=== PATIENT | male | born 1980 | race Caucasian/White ===

== ENCOUNTER 2024-08-13 08:07 | Emergency (ER) | payer BC, SELFPAY ==
--- OUTSIDE RECORDS SUMMARY | 2024-08-13 08:09 | XMS_ITS | Clinical Summary ---
Author Organization [facility] Address [place], [place] [address] Care Team Providers Care Boat Person Name Role Phone Keely Frost MD [facility], Macrina Middleton MD Primary Care Provid er Allergies Active Allergy Reactions Criticality Noted Date Comments Hydralazine Itching 11/29/2015 Throat itched Lisinopril Angioedema 10/25/2015 Medications albuterol HFA (PRO-AIR; VENTOLIN; PROVENTIL) 90 mcg/actuation inhalerIndications :Cough Inhale 2 Puffs by mouth every 4 hours if needed (shortness of breath/wheezing). 1 Each 08/28/19 22 Active Blood Pressure Monitor KitIndications:HTN (hypertension) Check blood pressure daily as needed for hypertension. Duration: 99 months. Prognosis: Good. 1 Each 08/31/19 23 Active EPINEPHrine (EpiPen) 0.3 mg/0.3 mL auto-injectorIndic ations:Angioedema, initial encounter Inject 0.3 mg intramuscular one time if needed for Allergic Reaction. 2 Each 10/03/19 23 Active acetaminophen (TYLENOL) 325 mg tabletIndications: Symptomatic cholelithiasis Take 2 Tablets (650 mg) by mouth every 6 hours. Max acetaminophen dose: 4000mg in 24 hrs. 30 Tablet 3 3:42 PM PARTS CLASSIFIER 06/24/20 23 Active losartan (COZAAR) 100 mg tabletIndications: Hypertension, unspecified type Take 1 Tablet (100 mg) by mouth once daily. 90 Tablet 3 12/24/19 24 Active spironolactone (ALDACTONE) 100 mg tabletIndications: Hypertension, unspecified type Take 1 Tablet (100 mg) by mouth once daily in the morning. 90 Tablet 3 12/24/19 24 Active amLODIPine (NORVASC) 5 mg tabletIndications: Hypertension, unspecified type Take 1 Tablet (5 mg) by mouth once daily. 90 Tablet 3 07/12/19 25 Active Active Problems Problem Noted Date Diagnosed Date HTN (hypertension) Hyperlipidemia Resolved Problems Problem Noted Date Diagnosed Date Resolved Date Symptomatic cholelithiasis 06/24/2023 0 12/29/2023 Right arm cellulitis 03/14/2017 021 Right arm cellulitis 03/05/2017 021 Overview (03/15/2017): [facility] for IV Vanco Hyperlipidemia 08/29/2020 Encounters Date Type Department Care Team Description 07/12/2024 10:00 AM PARTS CLASSIFIER Office Visit [facility] [address] [facility] [address] [place] [address] Ilene Aguilera PA Abdominal Pain (Onset of abdominal pain x 1-2 weeks); Testicle Pain (Onset of coming and going testicle pain x 1-2- weeks) 07/12/2024 Travel 05/25/2024 Telephone [facility] [address] [place] [facility] [address] [place] [address] Macrina Abdullahi MD Hypertension from Last 3 Months Immunizations Name Administration Dates Next Due Tdap 07/16/2021,03/19/2017 Family History Medical History Relation Name Comments Hypertension Father Allergies Mother Hypertension Paternal Uncle 1 Hypertension Paternal Uncle 2 Heart Disease Paternal Uncle 3 Anuerysm r upture @ 57 Relation Name Status Comments Father Mother Paternal Uncle 1 Paternal Uncle 2 Paternal Uncle 3 Social History Tobacco Use Types Packs/Day Years Used Date Smoking Tobacco: Never Passive Smoke Exposure: Never Smokeless Tobacco: Never Tobacco Cessation:Counseling Given: No Alcohol Use Standard Drinks/Week Comments Not Currently 0 (1 standard drink = 0.6 oz pur e alcohol) Rare PHQ-2 Answer Date Recorded PHQ-2 TOTAL SCORE 0 12/24/2023 Social Connections Answer Date Recorded Frequency of Communication with Friends and Fami ly 0 10/02/2022 Financial Resource Strain Answer Date R ecorded Difficulty of Paying Living Expenses 3 10/02/2022 Difficulty of Paying Living Expenses Not on file 10/02/2022 Food Insecurity Answer Date Recorded Worried About Running Out of Food in the Last Ye ar 1 10/02/2022 Transportation Needs Answer Date Record ed Lack of Transportation (Medical) 1 10/02/2022 Housing Stability Answer Date Recorded Unable to Pay for Housing in the Last Year 1 10/02/2022 Interpersonal Safety Answer Date Record ed Are you being hit, kicked, p ushed or yelled at (see row info)? No 08/28/2023 Interpersonal Safety Abuse 12 - 18 Not on file 08/28/2023 Interpersonal Safety Ambulatory Vulnerability No t on file 08/28/2023 Sex and Gender Information Value Date Recorded Sex Assigned at Not on file Legal Sex Male 7:46 AM CDT Gender Identity Not on file Sexual Orientation Not on file Obstetrics History Para Term AB IAB SAB Ectopic Multiple Livin g Live Births 0 0 0 0 0 0 0 0 Last Filed Vital Signs Vital Sign Reading Time Taken Comments Blood Pressure 150/100 07/12/2024 10:09 AM PARTS CLASSIFIER Pulse 79 07/12/2024 10:06 AM PARTS CLASSIFIER Temperature 37.1 C (98.7 F) 08/28/2023 3:31 PM PARTS CLASSIFIER Respiratory Rate 16 08/28/2023 3:31 PM PARTS CLASSIFIER Oxygen Saturation 99% 07/12/2024 10: 06 AM PARTS CLASSIFIER Inhaled Oxygen Concentration - - Weight 120.8 kg (266 lb 4.8 oz) 025 10:06 AM PARTS CLASSIFIER Height 182.9 cm (6' 0.01) 07/12/2024 1 0:06 AM PARTS CLASSIFIER Body Mass Index 36.11 07/12/2024 10:06 AM PARTS CLASSIFIER Plan of Treatment Health Maintenance Due Date Last Done Comments COVID-19 vaccine series ( season) 2024 Influenza for age 9-49 03/05/2024 Colonoscopy through age 75 2024 Depression screening for age 12+ 12/23/2024 12/24/2023, 12/16/2021, 08/29/2020, Additional history exists BMI (ht and wt on same day) for age 18+ 07/12/2025 07/12/2024, 12/24/2023, 06/23/2023, Additional history exists Lipids for age 45-75 12/23/2028 12/24/2023, 08/29/2020, 04/06/2018, Additional history exists Tetanus booster 07/16/2031 07/16/2021, 03/19/2017 HIV for age 15-65 Completed 06/20/2021, 06/20/2021 Hepatitis C screening for age 18-79 Completed 06/20/2021 Tdap Completed 07/16/2021, 03/19/2017 Pneumococcal series for age 6-49 Aged Out No longer eligible based on patient's age to complete this topic Goals Goal Patient Goal Type Associated Problems Recent Progress Patient-Stated? Author BLOOD PRESSURE - Maintains BP less than 140/90 Blood Pressure No Bradly, Macrina Middleton MD Procedures Procedure Name Priority Date/Time Associated Diagnosis Comments CBC WITH AUTO DIFFERENTIAL Routine 07/12/2024 10:36 AM PARTS CLASSIFIER Abdominal pain, RUQ (right upper quadrant) COMP METABOLIC PANEL Routine 07/12/2024 10:36 AM PARTS CLASSIFIER Abdominal pain, RUQ (right upper quadrant) URINALYSIS MACROSCOPIC - [facility] ONLY POC DIP ([facility]) Routine 07/12/2024 10:35 AM PARTS CLASSIFIER Abdominal pain, RUQ (right upper quadrant) Dysuria URINE CULTURE Routine 07/12/2024 10:34 AM PARTS CLASSIFIER Abdominal pain, RUQ (right upper quadrant) Dysuria URINALYSIS MICROSCOPIC Routine 07/12/2024 10:34 AM PARTS CLASSIFIER Dysuria GC CHLAMYDIA TRACH PROBE Routine 07/12/2024 10:34 AM PARTS CLASSIFIER Testicular pain, left Testicular pain, right Dysuria TRICHOMONAS AMPLIFIED PROBE Routine 07/12/2024 10:34 AM PARTS CLASSIFIER Abdominal pain, RUQ (right upper quadrant) Testicular pain, left Testicular pain, right Dysuria LIPID PANEL Routine 12/24/2023 10:38 AM CDT HTN (hypertension) Hyperlipidemia, unspecified hyperlipidemia type ANTI HIV 1/2 Routine 06/20/2021 10:14 AM PARTS CLASSIFIER Venereal disease screening ANTI HCV Routine 06/20/2021 10:14 AM PARTS CLASSIFIER Venereal disease screening from Last 3 Months or Most Recently Relevant to Health Maintenance Results * CBC AND DIFFERENTIAL (07/12/2024 10:36 AM PARTS CLASSIFIER) WHITE BLOOD CELL COUNT 5.2 3.8 - 10.8 Thousand/u L [facility] RED BLOOD CELL COUNT 5.51 4.20 - 5.80 Million/uL [facility] HEMOGLOBIN 16.4 13.2 - 17.1 g/dL [facility] HEMATOCRIT 48.5 38.5 - 50.0 % [facility] MCV 88.0 80.0 - 100.0 fL [facility] MCH 29.8 27.0 - 33.0 pg [facility] MCHC 33.8 32.0 - 36.0 g/dL [facility] Comment: For adults, a slight decrease in the calculated MCHC value (in the range of 30 to 32 g/dL) is most likely not clinically significant; however, it should be interpreted with caution in correlation with other red cell parameters and the patient's clinical condition. RDW 13.0 11.0 - 15.0 % [facility] PLATELET COUNT 232 140 - 400 Thousand/u L [facility] MPV 10.5 7.5 - 12.5 fL [facility] ABSOLUTE NEUTROPHILS 3,240 1,500 - 7,800 cells/uL [facility] ABSOLUTE LYMPHOCYTES 1,258 850 - 3,900 cells/uL [facility] ABSOLUTE MONOCYTES 478 200 - 950 cells/uL [facility] ABSOLUTE EOSINOPHILS 172 15 - 500 cells/uL [facility] ABSOLUTE BASOPHILS 52 0 - 200 cells/uL [facility] NEUTROPHILS 62.3 % [facility] LYMPHOCYTES 24.2 % [facility] MONOCYTES 9.2 % [facility] EOSINOPHILS 3.3 % [facility] BASOPHILS 1.0 % [facility] Blood BLOOD SPECIMEN / Unknown 07/12/2024 10:36 AM PARTS CLASSIFIER 07/12/2024 10:36 AM PARTS CLASSIFIER Ilene WILLAMS HEMATOLOGY Jayla l Result [address] [facility] [address] [place] [address], [facility] [address] [place] [address] * COMP METABOLIC PANEL (07/12/2024 10:36 AM PARTS CLASSIFIER) GLUCOSE 92 65 - 99 mg/dL [facility] Comment: Fasting reference interval UREA NITROGEN (BUN) 16 7 - 25 mg/dL [facility] CREATININE 0.95 0.60 - 1.29 mg/dL [facility] EGFR 101 > OR = 60 mL/min/1. 73m2 [facility] BUN/CREATININE RATIO SEE NOTE: 6 - 22 (calc) [facility] Comment: Not Reported: BUN and Creatinine are within reference range. SODIUM 140 135 - 146 mmol/L [facility] POTASSIUM 3.8 3.5 - 5.3 mmol/L [facility] CHLORIDE 103 98 - 110 mmol/L [facility] CARBON DIOXIDE 28 20 - 32 mmol/L [facility] CALCIUM 9.5 8.6 - 10.3 mg/dL [facility] PROTEIN, TOTAL 7.1 6.1 - 8.1 g/dL [facility] ALBUMIN 4.7 3.6 - 5.1 g/dL [facility] GLOBULIN 2.4 1.9 - 3.7 g/dL (calc) [facility] ALBUMIN/GLOBULIN RATIO 2.0 1.0 - 2.5 (calc) [facility] BILIRUBIN, TOTAL 0.9 0.2 - 1.2 mg/dL [facility] ALKALINE PHOSPHATASE 98 36 - 130 U/L [facility] AST 23 10 - 40 U/L [facility] ALT 33 9 - 46 U/L [facility] Blood BLOOD SPECIMEN / Unknown 07/12/2024 10:36 AM PARTS CLASSIFIER 07/12/2024 10:36 AM PARTS CLASSIFIER Ilene WILLAMS CHEMISTRY Jayla l Result Performing Organization Address City/[facility] [address]/ZIP Co de Phone Number [address] [facility] [address] [place] [address], [facility] [address] [place] [address] * POCT Urinalysis Dipstick Only (07/12/2024 10:35 AM PARTS CLASSIFIER) [facility] PH 5.5 5.0 - 8.0 [facility] SPECIFIC GRAVITY 1.020 1.001 - 1.035 [facility] GLUCOSE NEGATIVE NEGATIVE [facility] BILIRUBIN NEGATIVE NEGATIVE [facility] KETONES NEGATIVE NEGATIVE [facility] OCCULT BLOOD NEGATIVE NEGATIVE [facility] PROTEIN NEGATIVE NEGATIVE [facility] NITRITE NEGATIVE NEGATIVE [facility] LEUKOCYTE ESTERASE NEGATIVE NEGATIVE [facility] Urine URINE SPECIMEN / Unknown 07/12/2024 10:35 AM PARTS CLASSIFIER 07/12/2024 10:35 AM PARTS CLASSIFIER Ilene WILLAMS URINE Jayla l Result [facility] [address] [facility] [address] [address] [place] [address], [place] [phone] [facility] [address] [place] [facility] [place] [address] * TRICHOMONAS AMPLIFIED PROBE (07/12/2024 10:34 AM PARTS CLASSIFIER) TRICHOMONAS AMPLIFIED PROBE Negative 07/14/2024 11:09 AM PARTS CLASSIFIER [facility] Other URINE SPECIMEN / Unknown Non-Blood / Unknown 07/12/2024 10:34 AM PARTS CLASSIFIER 07/12/2024 10:34 AM PARTS CLASSIFIER Ilene WILLAMS MICROBIOLOGY Jayla l Result Performing Organization Address City/[facility] [address]/ZIP Co de Phone Number [facility] [address] [place] [id number], [place] * URINALYSIS MICROSCOPIC (07/12/2024 10:34 AM PARTS CLASSIFIER) RBC 0-2 0-2, None Seen /HPF 07/13/2024 1:00 AM PARTS CLASSIFIER [facility] WBC 0-2 0-2, 3-5, None Seen /HPF 07/13/2024 1:00 AM PARTS CLASSIFIER [facility] BACTERIA None Seen None Seen, Rare, Few Bacteria/ HPF 07/13/2024 1:00 AM PARTS CLASSIFIER [facility] EPITHELIAL CELLS None Seen None Seen, Few Epi/HPF 07/13/2024 1:00 AM PARTS CLASSIFIER [facility] HYALINE CASTS 3-5 0-2, 3-5 /LPF 07/13/2024 1:00 AM PARTS CLASSIFIER [facility] Urine URINE SPECIMEN / Unknown Non-Blood / Unknown 07/12/2024 10:34 AM PARTS CLASSIFIER 07/12/2024 10:34 AM PARTS CLASSIFIER Ilene WILLAMS URINE Jayla l Result [facility] [address] [place] [address], [place] * GC CHLAMYDIA [[id number]] - urine (07/12/2024 10:34 AM PARTS CLASSIFIER) CHLAMYDIA PROBE Negative 12:57 PM PARTS CLASSIFIER [facility] N GONORRHOEAE PROBE Negative 07/13/2024 12:57 PM PARTS CLASSIFIER [facility] Other URINE SPECIMEN / Unknown Non-Blood / Unknown 07/12/2024 10:34 AM PARTS CLASSIFIER 07/12/2024 10:34 AM PARTS CLASSIFIER Ilene WILLAMS MICROBIOLOGY Jayla l Result [facility] [address] [place] [address], * URINE CULTURE (07/12/2024 10:34 AM PARTS CLASSIFIER) CULTURE No growth (<1,000 CFU/mL) 07/14/2024 7:[address] [facility] Urine URINE SPECIMEN / Unknown Non-Blood / Unknown 07/12/2024 10:34 AM PARTS CLASSIFIER 07/12/2024 10:34 AM PARTS CLASSIFIER Ilene WILLAMS MICROBIOLOGY Jayla l Result [facility] [address] [place] [address], * (ABNORMAL) LIPID PANEL (12/24/2023 10:38 AM CDT) CHOLESTEROL,TOTAL 227(H) 100 - 199 mg/dL 12/24/2023 1:39 PM CDT [facility] Comment: Cholesterol, Total Reference Ranges Desirable <200 mg/dL Borderline 200-239 mg/dL High >=240 mg/dL TRIGLYCERIDES 154(H) <150 mg/dL 12/24/2023 1:39 PM CDT [facility] HDL CHOLESTEROL 44 >40 mg/dL 1:39 PM CDT [facility] NON-HDL CHOLESTEROL 183(H) <145 mg/dl 12/24/2023 1:39 PM CDT [facility] CHOL/HDL RATIO 5.16(H) <4.50 12/24/2023 1:39 PM CDT [facility] LDL CHOLESTEROL 152(H) <=130 mg/dL 12/24/2023 1:39 PM CDT [facility] VLDL CHOLESTEROL 31(H) <=30 mg/dL 12/24/2023 1:39 PM CDT [facility] PROVIDER ORDERED STATUS RANDOM 12/24/2023 1:39 PM CDT [facility] Blood BLOOD SPECIMEN / Unknown Venipuncture / Unknown 12/24/2023 10:38 AM CDT 12/24/2023 10:38 AM CDT Macrina Abdullahi MD CHEMISTRY Jayla l Result [facility] [address] [place] [address], [place] * ANTI HCV (06/20/2021 10:14 AM PARTS CLASSIFIER) Pathologist [facility] HEPATITIS C ANTIBODY Non-React sommer Non-React sommer 06/20/2021 3:30 PM PARTS CLASSIFIER [facility] Comment:Antibodies to HCV no t detected; does not exclude the possibility of exposure to HCV. Blood BLOOD SPECIMEN / Unknown Venipuncture / Unknown 06/20/2021 10:14 AM PARTS CLASSIFIER 06/20/2021 10:14 AM PARTS CLASSIFIER Macrina Abdullahi MD SEND OUTS Jayla l Result [facility] [address] [place] [address], [place] * ANTI HIV 1/2 (06/20/2021 10:14 AM PARTS CLASSIFIER) Pathologist [facility] HIV-1/HIV-2 ANTIBODY Non-Reacti ve Non-Reacti ve 06/20/2021 3:27 PM PARTS CLASSIFIER [facility] Comment:HIV-1 p24 and HIV-1/ HIV-2 Ab not detected. Blood BLOOD SPECIMEN / Unknown Venipuncture / Unknown 06/20/2021 10:14 AM PARTS CLASSIFIER 06/20/2021 10:14 AM PARTS CLASSIFIER us Macrina Abdullahi MD SEND OUTS Jayla l Result [facility] [address] [place] [address], [place] from Last 3 Months or Most Recently Relevant to Health Maintenance Insurance [facility] Advance Directives * Full Code (Latest Code Status on File) Date Activated Date Inactivated Comments 06/24/2023 12:16 PM 06/24/2023 6:56 PM Question Answer Comments Code Status Discussion: Unable to Assess Preferences, Provider to review later * Full Code Date Activated Date Inactivated Comments 03/15/2017 2:52 AM 03/15/2017 4:44 PM Care Teams Boat Person Relationship Specialty Start Date End Date Macrina Abdullahi MD [address] [address] [place] [address] PCP - General Family Practice 04/24/19 Keely Frost MD Family Practice 10/25/15
[2024-08-13 08:16] VITALS: BP 172/114; PULSE 69; RESP 20; TEMP 36.4; O2SAT 98; BMI 35.5
--- NOTE | 2024-08-13 08:17 | ED_ITS ---
HPI - Extremity Injury (Lower) General Chief Complaint: Extremity Pain/Injury, Lower Stated Complaint: left baby toe injury Time Seen by Provider: 08/13/24 08:10 History of Present Illness HPI Narrative: Patient is a 44-year-old gentleman who stumbled this morning on his child's toy a digits number 4 in 5 on his left foot. He suffered a skin tear between the 2 digits. He does not believe he has a broken toe. Ng bear weight without any difficulty. This skin tear is approximately 2 cm in length. Patient states he is extremely averse to needles. He preferred not to have any sutures. No signs of infection pain is only minimal. Related Data Allergies Allergy/AdvReac Type Severity Reaction Status Date / Time lisinopril Allergy Verified 08/13/24 08:16 Review of Systems Status of ROS: Reports: 10 or more systems reviewed and unremarkable except as noted in History and below Exam Narrative: Exam Narrative: EXAM GENERAL: Patient appears comfortable and well. EYES: No scleral icterus. LYMPH: No supraclavicular or cervical lymphadenopathy. SKIN: Small skin tear between digits 4 and 5 on the left foot. With good wound approximation. EXT: No dependent lower extremity pedal edema. PSYCH: Good eye contact, speech is not pressured. Course Course ED Course: Patient seen and examined. MDM - Extremity Injury (Lower) MDM Narrative Medical decision making narrative: Patient is a 44-year-old gentleman comes in today with skin tear between digits 4 and 5 on his left foot. I did clean and soak the wound. Patient does not want sutures I do think it will heal fine without. I did recommend immobilization of that area as much as possible topical antibiotics and follow- up with his primary physician as needed. Discharge Plan Discharge Clinical Impression: Skin tear Patient Disposition: Home, Self-Care Condition: Stable Instructions: Laceration (ED) Additional Instructions: Keep wound clean Try to minimize disruption of healing Follow-up as needed. Topical antibiotics daily. Activity Level: No Restrictions Discharge Diet: Regular Stand Alone Forms: [employer] Info Instructions
--- OUTSIDE RECORDS SUMMARY | 2024-08-13 08:37 | XMS_ITS | Clinical Summary ---
Author Organization [facility] Address [place], [place] [address] Care Team Providers Care Manager Pmo Name Role Phone Keely Frost MD [facility], Macrina Middleton MD Primary Care Provid [...] 24 hrs. 30 Tablet 3 3:42 PM BUS ASSISTANT 06/24/20 23 Active losartan (COZAAR) 100 mg [...] Department Care Team Description 07/12/2024 10:00 AM BUS ASSISTANT Office Visit [facility] [address] [facility] [address] [place] [address] Ilene Aguilera PA Abdominal Pain (Onset of abdominal pain x 1-2 weeks); Testicle Pain (Onset of coming and going testicle pain x 1-2- weeks) 07/12/2024 Travel 05/25/2024 Telephone [facility] [address] [facility] [address] [place] [address] Macrina Abdullahi MD Hypertension from Last 3 [...] Comments Blood Pressure 150/100 07/12/2024 10:09 AM BUS ASSISTANT Pulse 79 07/12/2024 10:06 AM BUS ASSISTANT Temperature 37.1 C (98.7 F) 08/28/2023 3:31 PM BUS ASSISTANT Respiratory Rate 16 08/28/2023 3:31 PM BUS ASSISTANT Oxygen Saturation 99% 07/12/2024 10: 06 AM BUS ASSISTANT Inhaled Oxygen Concentration - - Weight 120.8 kg (266 lb 4.8 oz) 025 10:06 AM BUS ASSISTANT Height 182.9 cm (6' 0.01) 07/12/2024 1 0:06 AM BUS ASSISTANT Body Mass Index 36.11 07/12/2024 10:06 AM BUS ASSISTANT Plan of Treatment Health Maintenance Due Date [...] WITH AUTO DIFFERENTIAL Routine 07/12/2024 10:36 AM BUS ASSISTANT Abdominal pain, RUQ (right upper quadrant) COMP METABOLIC PANEL Routine 07/12/2024 10:36 AM BUS ASSISTANT Abdominal pain, RUQ (right upper quadrant) URINALYSIS MACROSCOPIC - [facility] ONLY POC DIP ([facility]) Routine 07/12/2024 10:35 AM BUS ASSISTANT Abdominal pain, RUQ (right upper quadrant) Dysuria URINE CULTURE Routine 07/12/2024 10:34 AM BUS ASSISTANT Abdominal pain, RUQ (right upper quadrant) Dysuria URINALYSIS MICROSCOPIC Routine 07/12/2024 10:34 AM BUS ASSISTANT Dysuria GC CHLAMYDIA TRACH PROBE Routine 07/12/2024 10:34 AM BUS ASSISTANT Testicular pain, left Testicular pain, right Dysuria TRICHOMONAS AMPLIFIED PROBE Routine 07/12/2024 10:34 AM BUS ASSISTANT Abdominal pain, RUQ (right upper quadrant) Testicular pain, left Testicular pain, right Dysuria LIPID PANEL Routine 12/24/2023 10:38 AM CDT HTN (hypertension) Hyperlipidemia, unspecified hyperlipidemia type ANTI HIV 1/2 Routine 06/20/2021 10:14 AM BUS ASSISTANT Venereal disease screening ANTI HCV Routine 06/20/2021 10:14 AM BUS ASSISTANT Venereal disease screening from Last 3 Months or Most Recently Relevant to Health Maintenance Results * CBC AND DIFFERENTIAL (07/12/2024 10:36 AM BUS ASSISTANT) WHITE BLOOD CELL COUNT 5.2 3.8 - [...] BLOOD SPECIMEN / Unknown 07/12/2024 10:36 AM BUS ASSISTANT 07/12/2024 10:36 AM BUS ASSISTANT Ilene WILLAMS HEMATOLOGY Jayla l Result [employer] [facility] [address] [place] [address], [employer] [address] [place] [address] * COMP METABOLIC PANEL (07/12/2024 10:36 AM BUS ASSISTANT) GLUCOSE 92 65 - 99 mg/dL [facility] [...] BLOOD SPECIMEN / Unknown 07/12/2024 10:36 AM BUS ASSISTANT 07/12/2024 10:36 AM BUS ASSISTANT Ilene WILLAMS CHEMISTRY Jayla l Result Performing Organization Address City/[facility]/ZIP Co de Phone Number [employer] [facility] [address] [place] [address], [facility] [address] [place] [address] * POCT Urinalysis Dipstick Only (07/12/2024 10:35 AM BUS ASSISTANT) [facility] PH 5.5 5.0 - 8.0 [facility] SPECIFIC GRAVITY 1.020 1.001 - 1.035 [facility] GLUCOSE NEGATIVE NEGATIVE [facility] BILIRUBIN NEGATIVE NEGATIVE [facility] KETONES NEGATIVE NEGATIVE [facility] OCCULT BLOOD NEGATIVE NEGATIVE [facility] PROTEIN NEGATIVE NEGATIVE [facility] NITRITE NEGATIVE NEGATIVE [facility] LEUKOCYTE ESTERASE NEGATIVE NEGATIVE [facility] Urine URINE SPECIMEN / Unknown 07/12/2024 10:35 AM BUS ASSISTANT 07/12/2024 10:35 AM BUS ASSISTANT Ilene WILLAMS URINE Jayla l Result [facility] [address] [facility] [address] [place] [address], [place] [phone] [facility] [address] [facility] [place] [address] * TRICHOMONAS AMPLIFIED PROBE (07/12/2024 10:34 AM BUS ASSISTANT) TRICHOMONAS AMPLIFIED PROBE Negative 07/14/2024 11:09 AM BUS ASSISTANT [facility] Other URINE SPECIMEN / Unknown Non-Blood / Unknown 07/12/2024 10:34 AM BUS ASSISTANT 07/12/2024 10:34 AM BUS ASSISTANT Ilene WILLAMS MICROBIOLOGY Jayla l Result Performing Organization Address City/[facility]/ZIP Co de Phone Number [facility] [address] [place] [id number], [place] * URINALYSIS MICROSCOPIC (07/12/2024 10:34 AM BUS ASSISTANT) RBC 0-2 0-2, None Seen /HPF 07/13/2024 1:00 AM BUS ASSISTANT [facility] WBC 0-2 0-2, 3-5, None Seen /HPF 07/13/2024 1:00 AM BUS ASSISTANT [facility] BACTERIA None Seen None Seen, Rare, Few Bacteria/ HPF 07/13/2024 1:00 AM BUS ASSISTANT [facility] EPITHELIAL CELLS None Seen None Seen, Few Epi/HPF 07/13/2024 1:00 AM BUS ASSISTANT [facility] HYALINE CASTS 3-5 0-2, 3-5 /LPF 07/13/2024 1:00 AM BUS ASSISTANT [facility] Urine URINE SPECIMEN / Unknown Non-Blood / Unknown 07/12/2024 10:34 AM BUS ASSISTANT 07/12/2024 10:34 AM BUS ASSISTANT Ilene WILLAMS URINE Jayla l Result [facility] [address] [place] [address], [place] * GC CHLAMYDIA [[id number]] - urine (07/12/2024 10:34 AM BUS ASSISTANT) CHLAMYDIA PROBE Negative 12:57 PM BUS ASSISTANT [facility] N GONORRHOEAE PROBE Negative 07/13/2024 12:57 PM BUS ASSISTANT [facility] Other URINE SPECIMEN / Unknown Non-Blood / Unknown 07/12/2024 10:34 AM BUS ASSISTANT 07/12/2024 10:34 AM BUS ASSISTANT Ilene WILLAMS MICROBIOLOGY Jayla l Result [facility] [address] [place] [address], * URINE CULTURE (07/12/2024 10:34 AM BUS ASSISTANT) CULTURE No growth (<1,000 CFU/mL) 07/14/2024 7:31 AM BUS ASSISTANT [facility] Urine URINE SPECIMEN / Unknown Non-Blood / Unknown 07/12/2024 10:34 AM BUS ASSISTANT 07/12/2024 10:34 AM BUS ASSISTANT Ilene WILLAMS MICROBIOLOGY Jayla l Result [facility] [address] [place] [address], * (ABNORMAL) LIPID PANEL (12/24/2023 10:38 AM CDT) CHOLESTEROL,TOTAL 227(H) 100 - 199 mg/dL 12/24/2023 1:39 PM CDT [facility] Comment: Cholesterol, Total Reference Ranges Desirable <200 mg/dL Borderline 200-239 mg/dL High >=240 mg/dL TRIGLYCERIDES 154(H) <150 mg/dL 12/24/2023 1:39 PM CDT [facility] HDL CHOLESTEROL 44 >40 mg/dL 1:39 PM CDT [facility] NON-HDL CHOLESTEROL 183(H) <145 mg/dl 12/24/2023 1:39 PM CDT [facility] CHOL/HDL RATIO 5.16(H) <4.50 12/24/2023 1:39 PM CDT [facility] LDL CHOLESTEROL 152(H) <=130 mg/dL 12/24/2023 1:39 PM CDT [facility] VLDL CHOLESTEROL 31(H) <=30 mg/dL 12/24/2023 1:39 PM CDT [facility] PROVIDER ORDERED STATUS RANDOM 12/24/2023 1:39 PM CDT [facility] Blood BLOOD SPECIMEN / Unknown Venipuncture / Unknown 12/24/2023 10:38 AM CDT 12/24/2023 10:38 AM CDT Macrina Abdullahi MD CHEMISTRY Jayla l Result [facility] [address] [place] [address], [place] * ANTI HCV (06/20/2021 10:14 AM BUS ASSISTANT) Pathologist [facility] [place] HEPATITIS C ANTIBODY Non-React sommer Non-React sommer 06/20/2021 3:30 PM BUS ASSISTANT [facility] Comment:Antibodies to HCV no t detected; does not exclude the possibility of exposure to HCV. Blood BLOOD SPECIMEN / Unknown Venipuncture / Unknown 06/20/2021 10:14 AM BUS ASSISTANT 06/20/2021 10:14 AM BUS ASSISTANT Macrina Abdullahi MD SEND OUTS Jayla l Result [facility] [address] [place] [address], [place] * ANTI HIV 1/2 (06/20/2021 10:14 AM BUS ASSISTANT) Pathologist [facility] [place] HIV-1/HIV-2 ANTIBODY Non-Reacti ve Non-Reacti ve 06/20/2021 3:27 PM BUS ASSISTANT [facility] Comment:HIV-1 p24 and HIV-1/ HIV-2 Ab not detected. Blood BLOOD SPECIMEN / Unknown Venipuncture / Unknown 06/20/2021 10:14 AM BUS ASSISTANT 06/20/2021 10:14 AM BUS ASSISTANT us Macrina Abdullahi MD SEND OUTS Jayla l Result [facility] [address] [place] [address], [place] from Last 3 Months or Most Recently Relevant to Health Maintenance Insurance [facility] Advance Directives * Full Code (Latest Code Status on File) Date Activated Date Inactivated Comments 06/24/2023 12:16 PM 06/24/2023 6:56 PM Question Answer Comments Code Status Discussion: Unable to Assess Preferences, Provider to review later * Full Code Date Activated Date Inactivated Comments 03/15/2017 2:52 AM 03/15/2017 4:44 PM Care Teams Manager Pmo Relationship Specialty Start Date End Date Macrina Abdullahi MD [address] [place] [address] [place] [address] PCP - General Family Practice 04/24/19 Keely Frost MD Family Practice 10/25/15
== END 2024-08-13 08:43 | disposition home or self-care (01) ==
LOC: ED 08:35
PROVIDERS: Emergency Provider Internal Medicine
DX: S91.115A Laceration without foreign body of left lesser toe(s) without damage to nail, initial encounter (principal); W22.8XXA Striking against or struck by other objects, initial encounter
CPT/HCPCS: 99283

== ENCOUNTER 2024-10-19 15:08 | Emergency (ER) | payer BC, SELFPAY ==
[2024-10-19] VITALS (41 sets, daily range): BP systolic 136–160; BP diastolic 82–102; PULSE 78–97; RESP 16; TEMP 36–37.1; O2SAT 93–97; BMI 35.3
--- OUTSIDE RECORDS SUMMARY | 2024-10-19 15:11 | XMS_ITS | Clinical Summary ---
Author Organization [facility] Address [address] [place] [address] Care Team Providers Care Medical Administrative Name Role Phone Keely Frost MD [facility] guallpa BradlyMacrina chavez MD Primary Care Provid er Allergies Active [...] 24 hrs. 30 Tablet 3 3:42 PM TELEVISION ANALYZER 06/24/20 23 Active losartan (COZAAR) 100 mg [...] [facility] for IV Vanco Hyperlipidemia 08/29/2020 Immunizations Immunization Administration Dates Next Due Tdap 07/16/2021,03/19/2017 Family [...] Comments Blood Pressure 150/100 07/12/2024 10:09 AM TELEVISION ANALYZER Pulse 79 07/12/2024 10:06 AM TELEVISION ANALYZER Temperature 37.1 C (98.7 F) 08/28/2023 3:31 PM TELEVISION ANALYZER Respiratory Rate 16 08/28/2023 3:31 PM TELEVISION ANALYZER Oxygen Saturation 99% 07/12/2024 10: 06 AM TELEVISION ANALYZER Inhaled Oxygen Concentration - - Weight 120.8 kg (266 lb 4.8 oz) 025 10:06 AM TELEVISION ANALYZER Height 182.9 cm (6' 0.01) 07/12/2024 1 0:06 AM TELEVISION ANALYZER Body Mass Index 36.11 07/12/2024 10:06 AM TELEVISION ANALYZER Plan of Treatment Health Maintenance Due Date Last Done Comments COVID-19 vaccine series (2023- season) 2024 Colonoscopy through age 75 2024 Depression screening for age 12+ 12/23/2024 12/24/2023, 12/16/2021, 08/29/2020, Additional history exists Influenza Vaccine (Season Ended) 2025 BMI (ht and wt on same day) [...] than 140/90 Blood Pressure No Bradly, Macrina Catina Middleton MD Procedures Procedure Name Priority Date/Time Associated Diagnosis Comments LIPID PANEL Routine 12/24/2023 10:38 AM CDT HTN (hypertension) Hyperlipidemia, unspecified hyperlipidemia type ANTI HIV 1/2 Routine 06/20/2021 10:14 AM TELEVISION ANALYZER Venereal disease screening ANTI HCV Routine 06/20/2021 10:14 AM TELEVISION ANALYZER Venereal disease screening from Last 3 Months or Most Recently Relevant to Health Maintenance Results * (ABNORMAL) LIPID PANEL (12/24/2023 10:38 AM CDT) Pathologist [facility] CHOLESTEROL,TOTAL 227(H) 100 - 199 mg/dL 12/24/2023 1:39 PM CDT [facility] Comment: Cholesterol, Total Reference Ranges Desirable <200 mg/dL Borderline 200-239 mg/dL High >=240 mg/dL TRIGLYCERIDES 154(H) <150 mg/dL 12/24/2023 1:39 PM CDT [facility] HDL CHOLESTEROL 44 >40 mg/dL 1:39 PM CDT [facility] NON-HDL CHOLESTEROL 183(H) <145 mg/dl 12/24/2023 1:39 PM CDT [facility] CHOL/HDL RATIO 5.16(H) <4.50 12/24/2023 1:39 PM CDT [facility] LDL CHOLESTEROL 152(H) <=130 mg/dL 12/24/2023 1:39 PM CDT [facility] VLDL CHOLESTEROL 31(H) <=30 mg/dL 12/24/2023 1:39 PM CDT [facility] PROVIDER ORDERED STATUS RANDOM 12/24/2023 1:39 PM CDT [facility] Blood BLOOD SPECIMEN / Unknown Venipuncture / Unknown 12/24/2023 10:38 AM CDT 12/24/2023 10:38 AM CDT Macrina Abdullahi MD CHEMISTRY Jayla l Result [facility] [address] [place] [address], * ANTI HCV (06/20/2021 10:14 AM TELEVISION ANALYZER) HEPATITIS C ANTIBODY Non-React sommer Non-React sommer 06/20/2021 3:30 PM TELEVISION ANALYZER [facility] Comment:Antibodies to HCV no t detected; does not exclude the possibility of exposure to HCV. Blood BLOOD SPECIMEN / Unknown Venipuncture / Unknown 06/20/2021 10:14 AM TELEVISION ANALYZER 06/20/2021 10:14 AM TELEVISION ANALYZER Macrina Abdullahi MD SEND OUTS Jayla l Result Performing Organization Address City/[facility] Co de Phone Number [facility] [address] [place] [address], * ANTI HIV 1/2 (06/20/2021 10:14 AM TELEVISION ANALYZER) HIV-1/HIV-2 ANTIBODY Non-Reacti ve Non-Reacti ve 06/20/2021 3:27 PM TELEVISION ANALYZER [facility] Comment:HIV-1 p24 and HIV-1/ HIV-2 Ab not detected. Blood BLOOD SPECIMEN / Unknown Venipuncture / Unknown 06/20/2021 10:14 AM TELEVISION ANALYZER 06/20/2021 10:14 AM TELEVISION ANALYZER Macrina Abdullahi MD SEND OUTS Jayla l Result [facility] [address] [place] [address], from Last 3 Months or Most Recently Relevant to Health Maintenance Insurance [id number] [place] [id number] BLUE ADVANTAGE [facility] Advance Directives * Full Code (Latest Code Status on File) Date Activated Date Inactivated Comments 06/24/2023 12:16 PM 06/24/2023 6:56 PM Question Answer Comments Code Status Discussion: Unable to Assess Preferences, Provider to review later * Full Code Date Activated Date Inactivated Comments 03/15/2017 2:52 AM 03/15/2017 4:44 PM Care Teams Medical Administrative Relationship Specialty Start Date End Date Macrina Abdullahi MD [address] [address] [place] [address] PCP - General Family Practice 04/24/19 Keely Frost MD Family Practice 10/25/15
--- NOTE | 2024-10-19 15:23 | ED.ALLEREA ---
HPI - Allergic Reaction General Time Seen by Provider: 15:23 Date Seen: 10/19/24 Chief complaint: Allergic Reaction Stated complaint: allergic reaction in lips and face Time Seen by Provider: 10/19/24 15:23 Source: patient and RN notes reviewed Mode of arrival: ambulatory Limitations: no limitations Related Data Home Medications ?Medication ?Instructions ?Recorded ?Confirmed losartan 100 mg tablet 100 mg PO DAILY 10/19/24 10/19/24 spironolactone 100 mg tablet 100 mg PO DAILY 10/19/24 10/19/24 Allergies Allergy/AdvReac Type Severity Reaction Status Date / Time lisinopril Allergy Verified 08/13/24 08:16 PFSH PFS Social History Smoking Status: Never smoker Do you use any of these nicotine containing products: None Second hand tobacco smoke exposure: No How often do you have a drink containing alcohol: never How often do you have six or more drinks on one occasion: Never AUDIT-C Alcohol total score: 0 Non-prescribed substance use: denies use service: No Exam Const: Vital Signs, click to edit/add: Vital Signs - 24 hr 10/19/24 15:16 Temperature 96.8 F L Pulse Rate [Pulse Oximeter] 97 Respiratory Rate 16 Blood Pressure [Ri ght Upper Arm] 144/102 H Pulse Oximetry 97 Oxygen Delivery Me thod Room Air Course Vital Signs Vital signs: Initial Vital Signs Temperature 96.8 F L 10/19/24 15:16 Temperature Source Temporal Artery Scan 10/19/24 15:16 Pulse Rate 97 10/19/24 15:16 Pulse Rhythm Regular 10/19/24 15:16 Respiratory Rate 16 10/19/24 15:16 Blood Pressure 144/102 H 10/19/24 15:16 Blood Pressure Mean 116 H 10/19/24 15:16 Blood Pressure Position Sitting 10/19/24 15:16 Pulse Oximetry 97 10/19/24 15:16 Oxygen Delivery Method Room Air 10/19/24 15:16 Vital Signs Temperature 96.8 F L 10/19/24 15:16 Pulse Rate 97 10/19/24 15:16 Respiratory Rate 16 10/19/24 15:16 Blood Pressure 144/102 H 10/19/24 15:16 Pulse Oximetry 97 10/19/24 15:16 Oxygen Delivery Method Room Air 10/19/24 15:16 Temperature 96.8 F L 10/19/24 15:16 Pulse Rate 97 10/19/24 15:16 Respiratory Rate 16 10/19/24 15:16 Blood Pressure 144/102 H 10/19/24 15:16 Pulse Oximetry 97 10/19/24 15:16 Oxygen Delivery Method Room Air 10/19/24 15:16 Discharge Plan Discharge Prescriptions: No Action spironolactone 100 mg tablet 100 mg PO DAILY losartan 100 mg tablet 100 mg PO DAILY Follow Up/Referrals: Provider,Not a Local [Primary Care Provider] -
--- NOTE | 2024-10-19 15:31 | ED_ITS ---
HPI - Allergic Reaction General Date Seen: 10/19/24 <Jorge Novak - Last Filed: 10/24/24 08:33> Chief complaint: Allergic Reaction <Jorge Cortez Kishore - Last Filed: 10/24/24 08:33> Stated complaint: allergic reaction in lips and face <Jorge Novak - Last Filed: 10/24/24 08:33> Time Seen by Provider: 10/19/24 15:23 <Jorge Novak DO - Last Filed: 10/24/24 08:33> Source: patient <Jorge Novak - Last Filed: 10/24/24 08:33> Mode of arrival: ambulatory <Jorge Novak - Last Filed: 10/24/24 08:33> Limitations: no limitations <Jorge Dana Kishore - Last Filed: 10/24/24 08:33> History of Present Illness HPI narrative: patient is a 44-year-old male presenting to emergency department for swollen lower lip. He has had swelling like this before but usually goes away after a few hours. Has happened 4 times in the past 2 years. 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 He has been on losartan and spironolactone for several years now. Could think of any new soaps, detergents or anything else. Does not feel any swelling to the back of his throat or in his mouth. Does feel some swelling along his jaw. Denies fevers, chills, chest pain, shortness of breath, lightheadedness, dizziness, weakness, numbness. No other concerns noted. No family history of angioedema. <Jorge Novak - Last Filed: 10/24/24 08:33> Related Data Home medications: Home Medications ?Medication ?Instructions ?Recorded ?Confirmed losartan 100 mg tablet 100 mg PO DAILY 10/19/24 10/19/24 spironolactone 100 mg tablet 100 mg PO DAILY 10/19/24 10/19/24 <Jorge Novak DO - Last Filed: 10/24/24 08:33> Allergies/adverse reactions: Allergies Allergy/AdvReac Type Severity Reaction Status Date / Time lisinopril Allergy Verified 08/13/24 08:16 <Jorge Novak - Last Filed: 10/24/24 08:33> Review of Systems Status of ROS Reports: 10 or more systems reviewed and unremarkable except as noted in History and below <Jorge Novak DO - Last Filed: 10/24/24 08:33> [facility] Social History: Social History Smoking Status: Never smoker Do you use any of these nicotine containing products: None Second hand tobacco smoke exposure: No How often do you have a drink containing alcohol: never How often do you have six or more drinks on one occasion: Never AUDIT-C Alcohol total score: 0 Non-prescribed substance use: denies use service: No <Jorge Novak DO - Last Filed: 10/24/24 08:33> Exam Narrative: Exam Narrative: Const: Well-nourished, Well-developed, in mild distress . Eyes: PERRL, no conjunctival injection, and symmetrical lids HENT: Atraumatic external nose and ears. Moist mucous membranes. Swelling noted to lower lip. No swelling noted to oropharynx, tongue, or under the tongue. Neck: Symmetric, trachea midline, No thyromegaly. CVS: RRR, No murmurs or gallops. Peripheral pulses 2+ and equal in all extremities RESP: Unlabored respiratory effort. Clear to auscultation bilaterally. No signs of airway compromise GI: Nontender/Nondistended, No rebound or guarding. MSK:Extremities w/o deformity, Normal Active ROM Skin: Warm, Dry. No rashes or lesions. Neuro: Normal Muscle tone, No focal neurological deficits. Psych: Awake, Alert, & Oriented x3. Appropriate mood and affect. <Jorge Novak DO - Last Filed: 10/24/24 08:33> Const: Vital Signs, click to edit/add: Vital Signs - 24 hr 10/19/24 15:16 10/19/24 17:42 10/19/24 18:10 Temperature 96.8 F L Pulse Rate 88 Pulse Rate [Pulse Oximeter] 97 Respiratory Rate 16 Blood Pressure 154/99 H Blood Pressure [Ri ght Upper Arm] 144/102 H Pulse Oximetry 97 96 Oxygen Delivery Me thod Room Air 10/19/24 18:12 10/19/24 18:16 10/19/24 18:22 Temperature Pulse Rate 88 Pulse Rate [Pulse Oximeter] Respiratory Rate Blood Pressure 154/100 H 160/100 H 141/91 H Blood Pressure [Ri ght Upper Arm] Pulse Oximetry 95 Oxygen Delivery Me thod 10/19/24 18:23 10/19/24 18:30 10/19/24 18:32 Temperature Pulse Rate 87 94 88 Pulse Rate [Pulse Oximeter] Respiratory Rate Blood Pressure 145/90 H Blood Pressure [Ri ght Upper Arm] Pulse Oximetry 95 95 95 Oxygen Delivery Me thod 10/19/24 18:45 10/19/24 19:00 10/19/24 19:01 Temperature Pulse Rate 92 92 96 Pulse Rate [Pulse Oximeter] Respiratory Rate Blood Pressure 142/93 H Blood Pressure [Ri ght Upper Arm] Pulse Oximetry 95 96 95 Oxygen Delivery Me thod 10/19/24 19:15 10/19/24 19:30 10/19/24 19:32 Temperature Pulse Rate 97 91 87 Pulse Rate [Pulse Oximeter] Respiratory Rate Blood Pressure 136/88 Blood Pressure [Ri ght Upper Arm] Pulse Oximetry 96 94 95 Oxygen Delivery Me thod 10/19/24 19:45 10/19/24 20:00 10/19/24 20:01 Temperature Pulse Rate 89 90 87 Pulse Rate [Pulse Oximeter] Respiratory Rate Blood Pressure 138/91 H Blood Pressure [Ri ght Upper Arm] Pulse Oximetry 94 95 95 Oxygen Delivery Me thod 10/19/24 20:42 Temperature 98.8 F Pulse Rate 86 Pulse Rate [Pulse Oximeter] Respiratory Rate 16 Blood Pressure 139/88 Blood Pressure [Ri ght Upper Arm] Pulse Oximetry 94 Oxygen Delivery Me thod Room Air <Jorge Novak, DO - Last Filed: 10/24/24 08:33> Vital Signs, click to edit/add: Vital Signs - 24 hr 10/19/24 15:16 10/19/24 17:42 10/19/24 18:10 Temperature 96.8 F L Pulse Rate 88 Pulse Rate [Pulse Oximeter] 97 Respiratory Rate 16 Blood Pressure 154/99 H Blood Pressure [Ri ght Upper Arm] 144/102 H Pulse Oximetry 97 96 Oxygen Delivery Me thod Room Air 10/19/24 18:12 10/19/24 18:16 10/19/24 18:22 Temperature Pulse Rate 88 Pulse Rate [Pulse Oximeter] Respiratory Rate Blood Pressure 154/100 H 160/100 H 141/91 H Blood Pressure [Ri ght Upper Arm] Pulse Oximetry 95 Oxygen Delivery Me thod 10/19/24 18:23 10/19/24 18:30 10/19/24 18:32 Temperature Pulse Rate 87 94 88 Pulse Rate [Pulse Oximeter] Respiratory Rate Blood Pressure 145/90 H Blood Pressure [Ri ght Upper Arm] Pulse Oximetry 95 95 95 Oxygen Delivery Me thod 10/19/24 18:45 10/19/24 19:00 10/19/24 19:01 Temperature Pulse Rate 92 92 96 Pulse Rate [Pulse Oximeter] Respiratory Rate Blood Pressure 142/93 H Blood Pressure [Ri ght Upper Arm] Pulse Oximetry 95 96 95 Oxygen Delivery Me thod 10/19/24 19:15 10/19/24 19:30 10/19/24 19:32 Temperature Pulse Rate 97 91 87 Pulse Rate [Pulse Oximeter] Respiratory Rate Blood Pressure 136/88 Blood Pressure [Ri ght Upper Arm] Pulse Oximetry 96 94 95 Oxygen Delivery Me thod 10/19/24 19:45 10/19/24 20:00 10/19/24 20:01 Temperature Pulse Rate 89 90 87 Pulse Rate [Pulse Oximeter] Respiratory Rate Blood Pressure 138/91 H Blood Pressure [Ri ght Upper Arm] Pulse Oximetry 94 95 95 Oxygen Delivery Me thod 10/19/24 20:42 Temperature 98.8 F Pulse Rate 86 Pulse Rate [Pulse Oximeter] Respiratory Rate 16 Blood Pressure 139/88 Blood Pressure [Ri ght Upper Arm] Pulse Oximetry 94 Oxygen Delivery Me thod Room Air <Rafa Mccollum MD - Last Filed: 10/19/24 21:04> Course Reevaluation(s) Time of Reevaluation #1: 21:03 <Rafa Mccollum MD - Last Filed: 10/19/24 21:04> Reevaluation #1: Patient swelling continued to improve in the emergency department, was given 1 unit of FFP. Still some mild lower lip swelling but generally better and stable for discharge. <Rafa Mccollum MD - Last Filed: 10/19/24 21:04> Vital Signs Vital signs: Initial Vital Signs Temperature 96.8 F L 10/19/24 15:16 Temperature Source Temporal Artery Scan 10/19/24 15:16 Pulse Rate 97 10/19/24 15:16 Pulse Rhythm Regular 10/19/24 15:16 Respiratory Rate 16 10/19/24 15:16 Blood Pressure 144/102 H 10/19/24 15:16 Blood Pressure Mean 116 H 10/19/24 15:16 Blood Pressure Position Sitting 10/19/24 15:16 Pulse Oximetry 97 10/19/24 15:16 Oxygen Delivery Method Room Air 10/19/24 15:16 Vital Signs Temperature 96.8 F L 10/19/24 15:16 Pulse Rate 97 10/19/24 15:16 Respiratory Rate 16 10/19/24 15:16 Blood Pressure 144/102 H 10/19/24 15:16 Pulse Oximetry 97 10/19/24 15:16 Oxygen Delivery Method Room Air 10/19/24 15:16 Temperature 98.6 F 10/19/24 21:35 Pulse Rate 86 10/19/24 22:02 Respiratory Rate 16 10/19/24 21:35 Blood Pressure 137/93 H 10/19/24 22:02 Pulse Oximetry 94 10/19/24 22:02 Oxygen Delivery Method Room Air 10/19/24 21:35 <Jorge Novak, DO - Last Filed: 10/24/24 08:33> Initial Vital Signs Temperature 96.8 F L 10/19/24 15:16 Temperature Source Temporal Artery Scan 10/19/24 15:16 Pulse Rate 97 10/19/24 15:16 Pulse Rhythm Regular 10/19/24 15:16 Respiratory Rate 16 10/19/24 15:16 Blood Pressure 144/102 H 10/19/24 15:16 Blood Pressure Mean 116 H 10/19/24 15:16 Blood Pressure Position Sitting 10/19/24 15:16 Pulse Oximetry 97 10/19/24 15:16 Oxygen Delivery Method Room Air 10/19/24 15:16 Vital Signs Temperature 96.8 F L 10/19/24 15:16 Pulse Rate 97 10/19/24 15:16 Respiratory Rate 16 10/19/24 15:16 Blood Pressure 144/102 H 10/19/24 15:16 Pulse Oximetry 97 10/19/24 15:16 Oxygen Delivery Method Room Air 10/19/24 15:16 Temperature 98.6 F 10/19/24 21:35 Pulse Rate 86 10/19/24 22:02 Respiratory Rate 16 10/19/24 21:35 Blood Pressure 137/93 H 10/19/24 22:02 Pulse Oximetry 94 10/19/24 22:02 Oxygen Delivery Method Room Air 10/19/24 21:35 <Rafa Mccollum MD - Last Filed: 10/19/24 21:04> Medications Administered Medications: Discontinued Medications Generic Name Dose Route Start Last Admin Trade Name Freq PRN Reason Stop Dose Admin Diphenhydramine HCl 50 mg 10/19/24 15:31 10/19/24 15:44 Diphenhydramine 50 Mg/Ml Inj IVP 10/19/24 15:32 Not Given ONCE ONE Diphenhydramine HCl 50 mg 10/19/24 15:38 10/19/24 15:42 Diphenhydramine 25 Mg Capsule PO 10/19/24 15:39 50 mg ONCE ONE Administration Epinephrine HCl 0.3 mg 10/19/24 17:12 10/19/24 17:16 Epinephrine 0.3 Mg Pen IM 10/19/24 17:13 0.3 mg ONCE ONE Administration Famotidine 20 mg 10/19/24 15:31 10/19/24 15:42 Famotidine 20 Mg Tablet PO 10/19/24 15:32 20 mg ONCE ONE Administration Prednisone 40 mg 10/19/24 15:31 10/19/24 15:42 Prednisone 20 Mg Tablet PO 10/19/24 15:32 40 mg ONCE ONE Administration Sodium Chloride 250 ml 10/19/24 18:49 10/19/24 21:05 0.9 % Sodium Chloride 500 Ml IV 10/20/24 23:59 250 ml ONCE PRN Administration Tranexamic Acid 1,000 mg 10/19/24 17:46 10/19/24 18:07 Tranexamic Acid 100 Mg/Ml Inj IV 10/19/24 17:47 1,000 mg ONCE ONE Administration <Jorge Novak DO - Last Filed: 10/24/24 08:33> Discontinued Medications Generic Name Dose Route Start Last Admin Trade Name Freq PRN Reason Stop Dose Admin Diphenhydramine HCl 50 mg 10/19/24 15:31 10/19/24 15:44 Diphenhydramine 50 Mg/Ml Inj IVP 10/19/24 15:32 Not Given ONCE ONE Diphenhydramine HCl 50 mg 10/19/24 15:38 10/19/24 15:42 Diphenhydramine 25 Mg Capsule PO 10/19/24 15:39 50 mg ONCE ONE Administration Epinephrine HCl 0.3 mg 10/19/24 17:12 10/19/24 17:16 Epinephrine 0.3 Mg Pen IM 10/19/24 17:13 0.3 mg ONCE ONE Administration Famotidine 20 mg 10/19/24 15:31 10/19/24 15:42 Famotidine 20 Mg Tablet PO 10/19/24 15:32 20 mg ONCE ONE Administration Prednisone 40 mg 10/19/24 15:31 10/19/24 15:42 Prednisone 20 Mg Tablet PO 10/19/24 15:32 40 mg ONCE ONE Administration Sodium Chloride 250 ml 10/19/24 18:49 10/19/24 21:05 0.9 % Sodium Chloride 500 Ml IV 10/20/24 23:59 250 ml ONCE PRN Administration Tranexamic Acid 1,000 mg 10/19/24 17:46 10/19/24 18:07 Tranexamic Acid 100 Mg/Ml Inj IV 10/19/24 17:47 1,000 mg ONCE ONE Administration <Rafa Mccollum MD - Last Filed: 10/19/24 21:04> MDM - Allergic Reaction MDM Narrative Medical decision making narrative: patient is a 44-year-old male presenting for lower lip swelling. It is hard to say exactly was causing his symptom. His unusual to see the swelling related to his losartan or severe lack down. He has no family history of angioedema. No signs of airway compromise right now so I will start by treating him for an allergic reaction just in case that is what is causing his symptoms. was not having any improvements after the medications. Will try epinephrine to see if this helps with his swelling. Did do the epinephrine and continued to have no changes. At this time will put an IV and check CBC and BMP which try trans exam like acid for possible Bradykinin induced angioedema. Losartan could possibly be the cause although it is rare. after he received the TXA the swelling in the corners of his mouth improved mildly knee states the swelling feels better. This does make me think it is some kind of familial or bradykinin induced angioedema. Will order 2 units of FFP as we do not stock the other treatment options. <Jorge P Kishore, DO - Last Filed: 10/24/24 08:33> Lab Data Labs: Lab Results 10/19/24 Range/Units 17:55 WBC 11.91 H (4.50-11.00) K/uL RBC 6.03 H (4.30-5.90) m/uL Hgb 17.6 H (13.5-17.5) gm/dL Hct 50.3 (37.0-53.0) % MCV 83 (80-100) fL MCH 29 (26-34) pg MCHC 35 (32-36) gm/dL RDW Coeff of Celestino 12.2 (11.5-15.5) % Plt Count 264 (140-440) K/uL Neut % (Auto) 82.9 H (42.0-72.0) % Lymph % (Auto) 12.7 L (20-44) % Adams % (Auto) 3.4 (0.0-11.0) % Eos % (Auto) 0.8 (0.0-7.0) % Baso % (Auto) 0.1 (0.0-3.0) % Neut # (Auto) 9.90 H (1.7-7.0) K/uL Lymph # (Auto) 1.50 (0.90-2.90) K/uL Adams # (Auto) 0.40 (0.00-0.90) K/UL Eos # (Auto) 0.10 (0.00-0.50) K/uL Baso # (Auto) 0.00 (0.00-0.30) K/uL Abs Immat Gran (auto) 0.00 (0.00-0.30) K/uL Imm/Tot Granulo (auto) 0.1 % Sodium 137 (135-149) mmol/L Potassium 3.5 L (3.6-5.1) mmol/L Chloride 99 (96-114) mmol/L Carbon Dioxide 26 (20-32) mmol/L Anion Gap 12 (7-15) mEq/L BUN 18 (5-24) mg/dL Creatinine 0.9 (0.5-1.5) mg/dL Estimated Creat Clear 113.77 Estimated GFR 107 ml/min Glucose 195 H (60-115) mg/dL Calcium 9.7 (8.4-10.6) mg/dL Blood Type B Positive Antibody Screen NEGATIVE <Jorge Cortez Kishore, DO - Last Filed: 10/24/24 08:33> Lab Results 10/19/24 Range/Units 17:55 WBC 11.91 H (4.50-11.00) K/uL RBC 6.03 H (4.30-5.90) m/uL Hgb 17.6 H (13.5-17.5) gm/dL Hct 50.3 (37.0-53.0) % MCV 83 (80-100) fL MCH 29 (26-34) pg MCHC 35 (32-36) gm/dL RDW Coeff of Celestino 12.2 (11.5-15.5) % Plt Count 264 (140-440) K/uL Neut % (Auto) 82.9 H (42.0-72.0) % Lymph % (Auto) 12.7 L (20-44) % Adams % (Auto) 3.4 (0.0-11.0) % Eos % (Auto) 0.8 (0.0-7.0) % Baso % (Auto) 0.1 (0.0-3.0) % Neut # (Auto) 9.90 H (1.7-7.0) K/uL Lymph # (Auto) 1.50 (0.90-2.90) K/uL Adams # (Auto) 0.40 (0.00-0.90) K/UL Eos # (Auto) 0.10 (0.00-0.50) K/uL Baso # (Auto) 0.00 (0.00-0.30) K/uL Abs Immat Gran (auto) 0.00 (0.00-0.30) K/uL Imm/Tot Granulo (auto) 0.1 % Sodium 137 (135-149) mmol/L Potassium 3.5 L (3.6-5.1) mmol/L Chloride 99 (96-114) mmol/L Carbon Dioxide 26 (20-32) mmol/L Anion Gap 12 (7-15) mEq/L BUN 18 (5-24) mg/dL Creatinine 0.9 (0.5-1.5) mg/dL Estimated Creat Clear 113.77 Estimated GFR 107 ml/min Glucose 195 H (60-115) mg/dL Calcium 9.7 (8.4-10.6) mg/dL Blood Type B Positive Antibody Screen NEGATIVE <Rafa Mccollum MD - Last Filed: 10/19/24 21:04> Discharge Plan Discharge Clinical Impression: Angioedema Qualifiers: Encounter type: initial encounter Qualified Code(s): T78.3XXA - Angioneurotic edema, initial encounter <Jorge Novak DO - Last Filed: 10/24/24 08:33> Patient Disposition: Home, Self-Care <Jorge Novak DO - Last Filed: 10/24/24 08:33> Condition: Improved <Jorge Novak DO - Last Filed: 10/24/24 08:33> Instructions: Angioedema (ED) <Jorge Novak DO - Last Filed: 10/24/24 08:33> Additional Instructions: I believe your symptoms are caused by angioedema. It is rare but this can possibly be caused by your losartan. I recommend stopping it. Also considering how many times this has occurred it is really important to follow-up with your primary care doctor about your blood pressure medication and your angioedema. You may need to eventually see a specialist. if you start noticing any swelling in the back of your throat or any difficulty breathing at all return to the nearest emergency department immediately. <Jorge Novak DO - Last Filed: 10/24/24 08:33> Prescriptions: No Action spironolactone 100 mg tablet 100 mg PO DAILY losartan 100 mg tablet 100 mg PO DAILY <Jorge Novak DO - Last Filed: 10/24/24 08:33> Follow Up/Referrals: Provider,Not a Local [Primary Care Provider] - <Jorge Novak DO - Last Filed: 10/24/24 08:33> Stand Alone Forms: [employer] Info Instructions <Jorge Novak DO - Last Filed: 10/24/24 08:33>
--- OUTSIDE RECORDS SUMMARY | 2024-10-19 15:40 | XMS_ITS | Clinical Summary ---
Author Organization [employer] [facility] [employer] [facility] Address [address] [place] [id number] Care Team Providers Care Base Engineer Name Role Phone [facility] BradlyMacrina chavez MD Primary Care Provid [...] 24 hrs. 30 Tablet 3 3:42 PM SOFTWARE SECURITY CONSULTANT 06/24/20 23 Active losartan (COZAAR) 100 mg [...] Comments Blood Pressure 150/100 07/12/2024 10:09 AM SOFTWARE SECURITY CONSULTANT Pulse 79 07/12/2024 10:06 AM SOFTWARE SECURITY CONSULTANT Temperature 37.1 C (98.7 F) 08/28/2023 3:31 PM SOFTWARE SECURITY CONSULTANT Respiratory Rate 16 08/28/2023 3:31 PM SOFTWARE SECURITY CONSULTANT Oxygen Saturation 99% 07/12/2024 10: 06 AM SOFTWARE SECURITY CONSULTANT Inhaled Oxygen Concentration - - Weight 120.8 kg (266 lb 4.8 oz) 025 10:06 AM SOFTWARE SECURITY CONSULTANT Height 182.9 cm (6' 0.01) 07/12/2024 1 0:06 AM SOFTWARE SECURITY CONSULTANT Body Mass Index 36.11 07/12/2024 10:06 AM SOFTWARE SECURITY CONSULTANT Plan of Treatment Health Maintenance Due Date [...] ANTI HIV 1/2 Routine 06/20/2021 10:14 AM SOFTWARE SECURITY CONSULTANT Venereal disease screening ANTI HCV Routine 06/20/2021 10:14 AM SOFTWARE SECURITY CONSULTANT Venereal disease screening from Last 3 Months or Most Recently Relevant to Health Maintenance Results * (ABNORMAL) LIPID PANEL (12/24/2023 10:38 AM CDT) Pathologist [facility] CHOLESTEROL,TOTAL 227(H) 100 - 199 mg/dL 12/24/2023 1:39 PM CDT [facility] Comment: Cholesterol, Total Reference Ranges Desirable <200 mg/dL Borderline 200-239 mg/dL High >=240 mg/dL TRIGLYCERIDES 154(H) <150 mg/dL 12/24/2023 1:39 PM CDT [facility] HDL CHOLESTEROL 44 >40 mg/dL 1:39 PM CDT [facility] NON-HDL CHOLESTEROL 183(H) <145 mg/dl 12/24/2023 1:39 PM CDT [facility] CHOL/HDL RATIO 5.16(H) <4.50 12/24/2023 1:39 PM CDT [facility] LDL CHOLESTEROL 152(H) <=130 mg/dL 12/24/2023 1:39 PM CDT [facility] VLDL CHOLESTEROL 31(H) <=30 mg/dL 12/24/2023 1:39 PM CDT [facility] PROVIDER ORDERED STATUS RANDOM 12/24/2023 1:39 PM CDT [facility] Blood BLOOD SPECIMEN / Unknown Venipuncture / Unknown 12/24/2023 10:38 AM CDT 12/24/2023 10:38 AM CDT Macrina Abdullahi MD CHEMISTRY Jayla l Result [facility] [address] [place] [address], * ANTI HCV (06/20/2021 10:14 AM SOFTWARE SECURITY CONSULTANT) HEPATITIS C ANTIBODY Non-React sommer Non-React sommer 06/20/2021 3:30 PM SOFTWARE SECURITY CONSULTANT [facility] Comment:Antibodies to HCV no t detected; does not exclude the possibility of exposure to HCV. Blood BLOOD SPECIMEN / Unknown Venipuncture / Unknown 06/20/2021 10:14 AM SOFTWARE SECURITY CONSULTANT 06/20/2021 10:14 AM SOFTWARE SECURITY CONSULTANT Macrina Abdullahi MD SEND OUTS Jayla l Result Performing Organization Address City/[facility] Co de Phone Number [facility] [address] [place] [address], * ANTI HIV 1/2 (06/20/2021 10:14 AM SOFTWARE SECURITY CONSULTANT) HIV-1/HIV-2 ANTIBODY Non-Reacti ve Non-Reacti ve 06/20/2021 3:27 PM SOFTWARE SECURITY CONSULTANT [facility] Comment:HIV-1 p24 and HIV-1/ HIV-2 Ab not detected. Blood BLOOD SPECIMEN / Unknown Venipuncture / Unknown 06/20/2021 10:14 AM SOFTWARE SECURITY CONSULTANT 06/20/2021 10:14 AM SOFTWARE SECURITY CONSULTANT Macrina Abdullahi MD SEND OUTS Jayla l Result [facility] [address] [place] [address], from Last 3 Months or Most Recently Relevant to Health Maintenance Insurance [id number] [place] [address] [employer] [facility] [place] Advance Directives * Full Code (Latest Code Status on File) Date Activated Date Inactivated Comments 06/24/2023 12:16 PM 06/24/2023 6:56 PM Question Answer Comments Code Status Discussion: Unable to Assess Preferences, Provider to review later * Full Code Date Activated Date Inactivated Comments 03/15/2017 2:52 AM 03/15/2017 4:44 PM Care Teams Base Engineer Relationship Specialty Start Date End Date Macrina Abdullahi MD [address] [address] [place] [address] PCP - General Family Practice 04/24/19 Keely Frost MD Family Practice 10/25/15
[2024-10-19] MEDS: predniSONE 20 MG TABLET 40 MG PO (15:42)
[2024-10-19] MEDS: FAMOTIDINE 20 MG TABLET PO (15:42)
[2024-10-19] MEDS: diphenhydrAMINE 25 MG CAPSULE 50 MG PO (15:42)
[2024-10-19] MEDS: EPINEPHrine 0.3 MG PEN IM (17:16)
[2024-10-19] MEDS: TRANEXAMIC ACID 100 MG/ML INJ 1000 MG IV (18:07)
[2024-10-19 18:16] LABS: Basophils Percent Auto 0.1 % (0.0-3.0); Eosinophils Percent Auto 0.8 % (0.0-7.0); Hematocrit 50.3 % (37.0-53.0); Hemoglobin* 17.6 gm/dL (13.5-17.5); Immature Granulocytes Pct Auto 0.1 %; Lymphocytes Percent Auto 12.7 % (20-44); Mean Corpuscular HGB Conc 35 gm/dL (32-36); Mean Corpuscular Hemoglobin 29 pg (26-34); Mean Corpuscular Volume 83 fL (80-100); Monocytes Percent Auto 3.4 % (0.0-11.0); Neutrophils Percent Auto 82.9 % (42.0-72.0); Platelet Count* 264 K/uL (140-440); RDW Coefficient of Variation % 12.2 % (11.5-15.5); Red Blood Count 6.03 m/uL (4.30-5.90); White Blood Count* 11.91 K/uL (4.50-11.00)
[2024-10-19 18:18] LABS: Slide Review Reflex No
[2024-10-19 18:28] LABS: Chloride* 99 mmol/L (96-114); Potassium* 3.5 mmol/L (3.6-5.1); Sodium* 137 mmol/L (135-149)
[2024-10-19 18:31] LABS: Anion Gap 12 mEq/L (7-15); Blood Urea Nitrogen* 18 mg/dL (5-24); Calcium* 9.7 mg/dL (8.4-10.6); Carbon Dioxide* 26 mmol/L (20-32); Creatinine* 0.9 mg/dL (0.5-1.5); Est. Creatinine Clearance* 113.77; Estimated Glomerular Filt Rate 107 ml/min; Glucose* 195 mg/dL (60-115)
[2024-10-19] MEDS: 0.9 % SODIUM CHLORIDE 500 ML 250 ML IV (21:05)
== END 2024-10-19 22:38 | disposition home or self-care (01) ==
PROVIDERS: Emergency Provider Student in an Organized Health Care Education/Training Program
DX: K13.0 Diseases of lips (principal); T78.3XXA Angioneurotic edema, initial encounter
CPT/HCPCS: 36415; 36430; 80048; 85025; 86850; 86900; 86901; 96372; 99284; A9270; J0171; J7030; J7512; P9017

== ENCOUNTER 2024-10-27 17:29 | Emergency (ER) | payer BC, SELFPAY ==
[2024-10-27 17:32] VITALS: BP 154/112; PULSE 84; RESP 18; TEMP 37.4; O2SAT 97; BMI 35.5
--- OUTSIDE RECORDS SUMMARY | 2024-10-27 17:32 | XMS_ITS | Clinical Summary ---
Author Organization [employer] [facility] [employer] Address [address] [place] [address] Care Team Providers Care State Superintendent [employer] Name Role Phone [facility]ely [facility] MD [facility] BradlyMacrina chavez MD Primary Care Provid er Allergies Active Allergy Reactions Criticality Noted Date Comments Hydralazine Itching 11/29/2015 Throat itched Lisinopril Angioedema 10/25/2015 Medications albuterol HFA (PRO-AIR; VENTOLIN; PROVENTIL) 90 mcg/actuation inhalerIndication s:Cough Inhale 2 Puffs by mouth every 4 hours if needed (shortness of breath/wheezing) . 1 Each 08/28/19 22 Active Blood Pressure Monitor KitIndications:HT N (hypertension) Check blood pressure daily as needed for hypertension. Duration: 99 months. Prognosis: Good. 1 Each 08/31/19 23 Active acetaminophen (TYLENOL) 325 mg tabletIndications :Symptomatic cholelithiasis Take 2 Tablets (650 mg) by mouth every 6 hours. Max acetaminophen dose: 4000mg in 24 hrs. 30 Tablet 3 3:42 PM PROBATION SUPERVISOR 06/24/20 23 Active losartan (COZAAR) 100 mg tabletIndications :Hypertension, unspecified type Take 1 Tablet (100 mg) by mouth once daily. 90 Tablet 3 12/24/19 24 Active spironolactone (ALDACTONE) 100 mg tabletIndications :Hypertension, unspecified type Take 1 Tablet (100 mg) by mouth once daily in the morning. 90 Tablet 3 12/24/19 24 Active amLODIPine (NORVASC) 5 mg tabletIndications :Hypertension, unspecified type Take 1 Tablet (5 mg) by mouth once daily. 90 Tablet 3 07/12/19 25 Active EPINEPHrine (EpiPen) 0.3 mg/0.3 mL auto-injectorIndi cations:Angioedem a, initial encounter Inject 0.3 mg intramuscular one time if needed for Allergic Reaction. 2 Each 10/24/19 25 Active EPINEPHrine (EpiPen) 0.3 mg/0.3 mL auto-injectorIndi cations:Angioedem a, initial encounter Inject 0.3 mg intramuscular one time if needed for Allergic Reaction. 2 Each 10/03/19 23 025 Discontin ued(Reord er (E-cancel not sent)) Active Problems Problem Noted Date Diagnosed Date HTN (hypertension) Hyperlipidemia Resolved Problems Problem Noted Date Diagnosed Date Resolved Date Symptomatic cholelithiasis 06/24/2023 0 12/29/2023 Right arm cellulitis 03/14/2017 021 Right arm cellulitis 03/05/2017 021 Overview (03/15/2017): [facility] for IV Vanco Hyperlipidemia 08/29/2020 Encounters Date Type Department Care Team Description 10/23/2024 1:00 PM CDT Office Visit [facility] [address] [facility] [address] [place] [address] Ilene Aguilera [facility] Hospital F/U (Lower lip swelling ) 10/23/2024 Travel from Last 3 Months Immunizations Immunization Administration Dates Next Due Tdap [...] Sign Reading Time Taken Comments Blood Pressure 136/96 10/23/2024 1:05 PM CDT Pulse 84 10/23/2024 12:57 PM CDT Temperature 37.1 C (98.7 F) 08/28/2023 3:31 PM PROBATION SUPERVISOR Respiratory Rate 16 08/28/2023 3:31 PM PROBATION SUPERVISOR Oxygen Saturation 99% 07/12/2024 10:06 AM PROBATION SUPERVISOR Inhaled Oxygen Concentration - - Weight 115.2 kg (254 lb) 10/23/2024 12:57 PM CDT Height 182.9 cm (6' 0.01) 07/12/2024 10:[address] Body Mass Index 34.44 07/12/2024 10:06 AM PROBATION SUPERVISOR Plan of Treatment Upcoming Encounters Date Type Department Care Team (Late st Contact Info) Description 11/03/2024 11:25 AM CDT Office Visit [facility] [address] [address] [place] [address] Alexia Campos MD [address] [address] [place] [address] Health Maintenance Due Date Last Done Comments COVID-19 vaccine series ( season) 2024 Colonoscopy through age 75 2024 [...] ANTI HIV 1/2 Routine 06/20/2021 10:14 AM PROBATION SUPERVISOR Venereal disease screening ANTI HCV Routine 06/20/2021 10:14 AM PROBATION SUPERVISOR Venereal disease screening from Last 3 Months or Most Recently Relevant to Health Maintenance Results * (ABNORMAL) LIPID PANEL (12/24/2023 10:38 AM CDT) CHOLESTEROL,TOTAL 227(H) 100 - 199 mg/dL 12/24/2023 1:39 PM CDT [facility] Comment: Cholesterol, Total Reference Ranges Desirable <200 mg/dL Borderline 200-239 mg/dL High >=240 mg/dL TRIGLYCERIDES 154(H) <150 mg/dL 12/24/2023 1:39 PM CDT [facility] HDL CHOLESTEROL 44 >40 mg/dL 4 1:39 PM CDT [facility] NON-HDL CHOLESTEROL 183(H) <145 mg/dl 12/24/2023 1:39 PM CDT [facility] CHOL/HDL RATIO 5.16(H) <4.50 12/24/2023 1:39 PM CDT [facility] LDL CHOLESTEROL 152(H) <=130 mg/dL 12/24/2023 1:39 PM T [facility] VLDL CHOLESTEROL 31(H) <=30 mg/dL 12/24/2023 1:39 PM CDT [facility] PROVIDER ORDERED STATUS RANDOM 12/24/2023 1:39 PM CDT [facility] Blood BLOOD SPECIMEN / Unknown Venipuncture / Unknown 12/24/2023 10:38 AM CDT 12/24/2023 10:38 AM CDT Macrina Abdullahi MD CHEMISTRY Jayla l Result Performing Organization Address City/[facility]/ZIP Co de Phone Number [facility] [address] [place] [address], [place] * ANTI HCV (06/20/2021 10:14 AM PROBATION SUPERVISOR) HEPATITIS C ANTIBODY Non-React sommer Non-React sommer 06/20/2021 3:30 PM PROBATION SUPERVISOR [facility] Comment:Antibodies to HCV no t detected; does not exclude the possibility of exposure to HCV. Blood BLOOD SPECIMEN / Unknown Venipuncture / Unknown 06/20/2021 10:14 AM PROBATION SUPERVISOR 06/20/2021 10:14 AM PROBATION SUPERVISOR us Macrina Abdullahi MD SEND OUTS Jayla l Result [facility] [address] [place] [address], [place] * ANTI HIV 1/2 (06/20/2021 10:14 AM PROBATION SUPERVISOR) HIV-1/HIV-2 ANTIBODY Non-Reacti ve Non-Reacti ve 06/20/2021 3:27 PM PROBATION SUPERVISOR [facility] Comment:HIV-1 p24 and HIV-1/ HIV-2 Ab not detected. Blood BLOOD SPECIMEN / Unknown Venipuncture / Unknown 06/20/2021 10:14 AM PROBATION SUPERVISOR 06/20/2021 10:14 AM PROBATION SUPERVISOR us Macrina Abdullahi MD SEND OUTS Jayla l Result [facility] [address] [place] [address], [place] from Last 3 Months or Most Recently Relevant to Health Maintenance Insurance [facility] Advance Directives * Full Code (Latest Code Status on File) Date Activated Date Inactivated Comments 06/24/2023 12:16 PM 06/24/2023 6:56 PM Question Answer Comments Code Status Discussion: Unable to Assess Preferences, Provider to review later * Full Code Date Activated Date Inactivated Comments 03/15/2017 2:52 AM 03/15/2017 4:44 PM Care Teams State Superintendent Of [employer] Relationship Specialty Start Date End Date Macrina Abdullahi MD [address] [address] [place] [address] PCP - General Family Practice 04/24/19 Keely Frost MD Family Practice 10/25/15
--- OUTSIDE RECORDS SUMMARY | 2024-10-27 17:59 | XMS_ITS | Clinical Summary ---
Author Organization [employer] [facility] [employer] Address [address] [place] [address] Care Team Providers Care Ski Top Trimmer Name Role Phone Keely Frost MD [facility] gu[facility]pa BradlyMacrina chavez MD Primary Care Provid [...] 24 hrs. 30 Tablet 3 3:42 PM ARBORICULTURE INSTRUCTOR 06/24/20 23 Active losartan (COZAAR) 100 mg [...] Description 10/23/2024 1:00 PM CDT Office Visit [facility] [address] [facility] [address] [place] [address] Ilene Aguilera [facility] F/U (Lower lip [...] 37.1 C (98.7 F) 08/28/2023 3:31 PM ARBORICULTURE INSTRUCTOR Respiratory Rate 16 08/28/2023 3:31 PM ARBORICULTURE INSTRUCTOR Oxygen Saturation 99% 07/12/2024 10:06 AM ARBORICULTURE INSTRUCTOR Inhaled Oxygen Concentration - - Weight 115.2 kg (254 lb) 10/23/2024 12:57 PM CDT Height 182.9 cm (6' 0.01) 07/12/2024 10:[address] Body Mass Index 34.44 07/12/2024 10:06 AM ARBORICULTURE INSTRUCTOR Plan of Treatment Upcoming Encounters Date Type Department Care Team (Late st Contact Info) Description 11/03/2024 11:25 AM CDT Office Visit [facility] [address] [address] [place] [address] Alexia Campos MD [address] [address] [place] [address] Health Maintenance Due Date Last Done Comments [...] ANTI HIV 1/2 Routine 06/20/2021 10:14 AM ARBORICULTURE INSTRUCTOR Venereal disease screening ANTI HCV Routine 06/20/2021 10:14 AM ARBORICULTURE INSTRUCTOR Venereal disease screening from Last 3 Months or Most Recently Relevant to Health Maintenance Results * (ABNORMAL) LIPID PANEL (12/24/2023 10:38 AM CDT) CHOLESTEROL,TOTAL 227(H) 100 - 199 mg/dL 12/24/2023 1:39 PM CDT [facility] Comment: Cholesterol, Total Reference Ranges Desirable <200 mg/dL Borderline 200-239 mg/dL High >=240 mg/dL TRIGLYCERIDES 154(H) <150 mg/dL 12/24/2023 1:39 PM CDT [facility] HDL CHOLESTEROL 44 >40 mg/dL 4 1:39 PM CDT [facility] NON-HDL CHOLESTEROL 183(H) <145 mg/dl 12/24/2023 1:39 PM CDT [facility] CHOL/HDL RATIO 5.16(H) <4.50 12/24/2023 1:39 PM CDT [facility] LDL CHOLESTEROL 152(H) <=130 mg/dL 12/24/2023 1:39 PM T [facility] VLDL CHOLESTEROL 31(H) <=30 mg/dL 12/24/2023 1:39 PM CDT [facility] PROVIDER ORDERED STATUS RANDOM 12/24/2023 1:39 PM CDT [facility] Blood BLOOD SPECIMEN / Unknown Venipuncture / Unknown 12/24/2023 10:38 AM CDT 12/24/2023 10:38 AM CDT Macrina Abdullahi MD CHEMISTRY Jayla l Result Performing Organization Address City/[facility]/ZIP Co de Phone Number [facility] [address] [place] [address], [place] * ANTI HCV (06/20/2021 10:14 AM ARBORICULTURE INSTRUCTOR) HEPATITIS C ANTIBODY Non-React sommer Non-React sommer 06/20/2021 3:30 PM ARBORICULTURE INSTRUCTOR [facility] Comment:Antibodies to HCV no t detected; does not exclude the possibility of exposure to HCV. Blood BLOOD SPECIMEN / Unknown Venipuncture / Unknown 06/20/2021 10:14 AM ARBORICULTURE INSTRUCTOR 06/20/2021 10:14 AM ARBORICULTURE INSTRUCTOR us Macrina Abdullahi MD SEND OUTS Jayla l Result [facility] [address] [place] [address], [place] * ANTI HIV 1/2 (06/20/2021 10:14 AM ARBORICULTURE INSTRUCTOR) HIV-1/HIV-2 ANTIBODY Non-Reacti ve Non-Reacti ve 06/20/2021 3:27 PM ARBORICULTURE INSTRUCTOR [facility] Comment:HIV-1 p24 and HIV-1/ HIV-2 Ab not detected. Blood BLOOD SPECIMEN / Unknown Venipuncture / Unknown 06/20/2021 10:14 AM ARBORICULTURE INSTRUCTOR 06/20/2021 10:14 AM ARBORICULTURE INSTRUCTOR us Macrina Abdullahi MD SEND OUTS Jayla l Result [facility] [address] [place] [address], [place] from Last 3 Months or Most Recently Relevant to Health Maintenance Insurance [facility] Advance Directives * Full Code (Latest Code Status on File) Date Activated Date Inactivated Comments 06/24/2023 12:16 PM 06/24/2023 6:56 PM Question Answer Comments Code Status Discussion: Unable to Assess Preferences, Provider to review later * Full Code Date Activated Date Inactivated Comments 03/15/2017 2:52 AM 03/15/2017 4:44 PM Care Teams Ski Top Trimmer Relationship Specialty Start Date End Date Macrina Abdullahi MD [address] [address] [place] [address] PCP - General Family Practice 04/24/19 Keely Frost MD Family Practice 10/25/15
--- NOTE | 2024-10-27 18:02 | CRLHL7_ITS ---
For Patients: As a result of the Cures Act, medical imaging exams and procedure reports are released immediately into your electronic medical record. You may view this report before your referring provider. If you have questions, please contact your health care provider. INDICATION: Numbness. TECHNIQUE: Cervical spine 3 view. COMPARISON: None. FINDINGS: Bones: Alignment is normal. No displaced fractures or significant bone lesions. Joints: Disc spaces and facets are unremarkable. Soft tissues: Unremarkable. Dictated by Jaren Ragsdale MD @ 10/27/2024 6:57:14 PM (Electronically Signed)
--- NOTE | 2024-10-27 18:30 | ED.GENADULT ---
HPI - General Adult General Date Seen: 10/27/24 Chief complaint: Unspecified Complaint, Adult Stated complaint: Left side of face and neck numb Time Seen by Provider: 10/27/24 17:43 Source: patient Mode of arrival: ambulatory Limitations: no limitations History of Present Illness HPI narrative: Patient is a 44-year-old male presenting to the emergency department for numbness around his left ear and neck. States symptoms started about 4 days ago and was not going away. No other injuries to the area noted. Was recently seen here for angioedema and no symptoms fully resolved. This numbness started about 2 days later. Has never had symptoms like this before. No history of strokes but was concerned because his family has a history of strokes. Denies any weakness, fevers, chills, changes in his hearing, vision changes. No pain associated with it. No other concerns noted at this time. Related Data Home Medications ?Medication ?Instructions ?Recorded ?Confirmed losartan 100 mg tablet 100 mg PO DAILY 10/19/24 10/27/24 spironolactone 100 mg tablet 100 mg PO DAILY 10/19/24 10/27/24 Allergies Allergy/AdvReac Type Severity Reaction Status Date / Time lisinopril Allergy Verified 10/27/24 17:38 Review of Systems Status of ROS: Reports: 10 or more systems reviewed and unremarkable except as noted in History and below PFSH PFS Social History Smoking Status: Never smoker Do you use any of these nicotine containing products: None Second hand tobacco smoke exposure: No How often do you have a drink containing alcohol: never How often do you have six or more drinks on one occasion: Never AUDIT-C Alcohol total score: 0 Non-prescribed substance use: denies use service: No Exam Narrative: Exam Narrative: Const: Well-nourished, Well-developed, in no distress Eyes: PERRL, no conjunctival injection, and symmetrical lids HENT: Atraumatic external nose and ears. Moist mucous membranes. Normal appearing external auditory canals. Neck: Symmetric, trachea midline, No thyromegaly. CVS: RRR, No murmurs or gallops. Peripheral pulses 2+ and equal in all extremities RESP: Unlabored respiratory effort. Clear to auscultation bilaterally. GI: Nontender/Nondistended, No rebound or guarding. MSK:Extremities w/o deformity, Normal Active ROM Skin: Warm, Dry. No rashes or lesions. Neuro: Normal Muscle tone, Cranial nerves 2-12 grossly intact, normal [id number], normal [id number], normal gait, normal strength 5/5 upper lower extremities bilaterally, normal sensation upper and lower extremities bilaterally, normal rapid alternating movements. Numbness noted to his left ear neck in the general distribution of the greater auricular nerve. Psych: Awake, Alert, & Oriented x3. Appropriate mood and affect. Const: Vital Signs, click to edit/add: Vital Signs - 24 hr 10/27/24 17:32 Temperature 99.4 F Pulse Rate [Right Pulse Oximeter] 84 Respiratory Rate 18 Blood Pressure [Ri ght Upper Arm] 154/112 H Pulse Oximetry 97 Oxygen Delivery Me thod Room Air Course Vital Signs Vital signs: Initial Vital Signs Temperature 99.4 F 10/27/24 17:32 Temperature Source Temporal Artery Scan 10/27/24 17:32 Pulse Rate 84 10/27/24 17:32 Pulse Rhythm Regular 10/27/24 17:32 Pulse Strength 3+ Normal 10/27/24 17:32 Respiratory Rate 18 10/27/24 17:32 Blood Pressure 154/112 H 10/27/24 17:32 Blood Pressure Mean 126 H 10/27/24 17:32 Blood Pressure Position Sitting 10/27/24 17:32 Pulse Oximetry 97 10/27/24 17:32 Oxygen Delivery Method Room Air 10/27/24 17:32 Vital Signs Temperature 99.4 F 10/27/24 17:32 Pulse Rate 84 10/27/24 17:32 Respiratory Rate 18 10/27/24 17:32 Blood Pressure 154/112 H 10/27/24 17:32 Pulse Oximetry 97 10/27/24 17:32 Oxygen Delivery Method Room Air 10/27/24 17:32 Temperature 99.4 F 10/27/24 17:32 Pulse Rate 84 10/27/24 17:32 Respiratory Rate 18 10/27/24 17:32 Blood Pressure 154/112 H 10/27/24 17:32 Pulse Oximetry 97 10/27/24 17:32 Oxygen Delivery Method Room Air 10/27/24 17:32 Medical Decision Making MDM Narrative Medical decision making narrative: Patient is a 44-year-old male presenting to emergency department for numbness. Numbness seems to be in the distribution of the greater auricular nerve. Cranial nerves were all normal. Rest of neuro exam showed no abnormalities. Unsure why he is having this issue but I will do an x-ray to look for signs of any stenosis that may be causing some compression. No signs of shingles. Very unlikely to be a stroke concerning the localization of the greater auricular nerve. X-ray shows no concerning abnormalities. At this time I believe he is safe for discharge. I spoke to him about talking to his primary care provider about doing a cervical spine MRI if symptoms persist. He states he understands. Discharge Plan Discharge Clinical Impression: Numbness Patient Disposition: Home, Self-Care Condition: Stable Instructions: Paresthesia (ED) Additional Instructions: If the symptoms persist make sure to talk to your primary care provider about this. They may recommend cervical spine MRI. In numbness appears to be in the distribution of the greater auricular nerve. This nerve originates from your neck. I do not believe this is related to a stroke. Prescriptions: No Action spironolactone 100 mg tablet 100 mg PO DAILY losartan 100 mg tablet 100 mg PO DAILY Follow Up/Referrals: Provider,Not a Local [Primary Care Provider] - Stand Alone Forms: [employer] Info Instructions
== END 2024-10-27 19:18 | disposition home or self-care (01) ==
PROVIDERS: Emergency Provider Student in an Organized Health Care Education/Training Program
DX: R20.0 Anesthesia of skin (principal)
CPT/HCPCS: 72040; 99283